=== PATIENT | female | born 1990 | race Caucasian/White ===

== ENCOUNTER 2019-04-10 22:30 | Inpatient (IN) | payer OTHER ==
[2019-04-11 00:07] LABS: BASO % 0.3 % (0-2.0); EOS % 0.3 % (0-4.5); HEMATOCRIT 31.6 % (32.4-45.2); HEMOGLOBIN 10.1 GM/dL (10.7-15.3); LYMPH % 23.7 % (8-40); MCH 31.1 pg (25.7-33.7); MCHC 31.9 g/dl (32.0-36.0); MEAN CELL VOLUME 97.6 fl (80-96); MEAN PLT VOLUME 10.1 fl (7.5-11.1); MONO % 8.5 % (3.8-10.2); NEUT % 67.2 % (42.8-82.8); PLATELET COUNT 244 K/MM3 (134-434); RBC 3.24 M/mm3 (3.60-5.2); RDW 14.6 % (11.6-15.6); WHITE BLOOD COUNT 11.6 K/mm3 (4.0-10.0)
[2019-04-11] MEDS ORDERED: OXYTOCIN 20 UNITS in 0.9% NS 20 UNIT/1,000 ML INFUS.BAG IV ONE (00:18)
[2019-04-11] MEDS ORDERED: FENTANYL/BUPIVACAINE/NS/PF - PCEA - 50 ML DISP.SYRIN EP ONE (00:18)
[2019-04-11 00:19] LABS: INR 0.86 (0.83-1.09); PROTHROMBIN TIME (PATIENT) 10.1 SEC (9.7-13.0)
[2019-04-11] MEDS ORDERED: LIDO 2%/EPI 1:200000 PRESRVFRE (20 ML SDVIAL) ONE (00:21)
--- NOTE | 2019-04-11 00:24 | HP ---
Past Medical History - Admission Chief Complaint: labor pain History Source: Patient Limitations to Obtaining History: No Limitations - Past Medical History CHILD THERAPIST: No: Alzheimer's, CVA, Dementia, Migraine, Multiple Sclerosis, Peripheral Neuropathy, Parkinson's, Seizure, Syncope, TIA, Vertigo, Other Cardiovascular: No: AFIB, Aneurysm, Aortic Insufficiency, Aortic Stenosis, CAD, CHF, Deep Vein Thrombosis, HTN, Hyperlipdemia, [place], Mitral Insufficiency, Mitral Stenosis, Murmur, Pulmonary Hypertension, Other Pulmonary: No: Asthma, Bronchitis, Cancer, COPD, O2 Dependent, Pneumonia, Previously Intubated, Pulmonary Embolus, Pulmonary Fibrosis, Sleep Apnea, Other Gastrointestinal: No: Ascites, Cancer, Constipation, Crohn's Disease, Diverticulitis, Diverticulosis, Esophageal Varices, Gastritis, GERD, GI Bleed, Hemorrhoids, Hiatal Hernia, Inflamatory Bowel Disease, Irritable Bowel Disease, Pancreatitis, Peptic Ulcer Disease, Ulcerative Colitis, Other Hepatobiliary: No: Cirrhosis, Cholelithiasis, Cholecystitis, Choledocholithiasis , Hepatitis A, Hepatitis B, Hepatitis C, Other Renal/: No: Renal Failure, Renal Inusuff, BPH, Cancer, Hematuria, Hemodialysis , Neurogenic Bladder, Renal Calculi, UTI, Other Reproductive: No: Ectopic , Endometriosis, Fibroids, PID, Polycystic Ovary Syndrome, Postmenopausal, Other ...Para: 1 ...Term: 1 ... Weeks Gestation by Dates: 39 ...EDC by Dates: 04/14/19 Heme/Onc: No: Anemia, B12 Deficiency, Bleeding Disorder, Cancer, Current Chemotherapy, Current Radiation Therapy, Hemochromatosis, Hypercoaguable State, Myeloproliferative Synd, Sickle Cell Disease, Sickle Cell Trait, Thrombocytopenia, Other Infectious Disease: No: AIDS, C-Diff, Herpes Zoster, HIV, MRSA, STD's, Tuberculosis, VREF, Other Psych: No: Addictions, Anxiety, Bipolar, Depression, Panic, Psychosis, Schizophrenia, Other Musculoskeletal: No: Bursitis, Chronic low back pain, Hemiparesis, Hemiplegia, Osteoarthritis, Paraplegia, Other Rheumatology: No: Fibromyalgia, Gout, Lupus, Rheumatoid Arthritis, Sarcoidosis, Vasculitis, Other ENT: No: Allergic Rhinitis, Sinusitis, Other Endocrine: No: Massimo's Disease, Elizabeth's Disease, Diabetes Insipidus, Diabetes Mellitus, Hyperparathyroidism, Hyperthyroidism, Hypothyroidism, Osteopenia, SIADH, Other Dermatology: No: Basal Cell, Cellulitis, Eczema, Melanoma, Psoriasis, Squamous Cell, Other - Past Surgical History Past Surgical History: No: None, AAA Repair, AICD, Amputation, Appendectomy, Arthrosocopy, AV Fistula/Graft, Bariatric Surgery, Breast Biopsy, Bypass, CABG, Carotid Endarterectomy, Cataract Removal, Cholecystectomy, Colectomy, Colonoscopy, Colostomy, Craniotomy, , Cystectomy, Hernia Repair, Hysterectomy, Ileal Conduit, Ileosotomy, Joint Replacement, Kidney Transplant, Laminectomy, Liver Transplant, Mastectomy, Nephrectomy, Oopherectomy, Orchiectomy, Permanent Pacemaker, Prostatectomy, Splenectomy, Stent, Thoracotomy , TURP, Tonsillectomy, Tubal Ligation, Upper Endoscopy, Valve Replacement, Vasectomy, Vein Stripping/Ligation Hx Myomectomy: No Hx Transabdominal Cerclage: No - Advance Directives Advance Directives: Yes: Living Will - Smoking History Smoking history: Never smoked Have you smoked in the past 12 months: No - Alcohol/Substance Use Hx Alcohol Use: No History of Substance Use: reports: None - Social History Usual Living Arrangement: Yes: With Significant Other Do you think of yourself as: Straight/Heterosexual ADL: Independent History of Recent Travel: No Home Medications - Allergies Allergies/Adverse Reactions: Allergies Allergy/AdvReac Type Severity Reaction Status Date / Time No Known Allergies Allergy Verified 04/10/19 23:16 - Home Medications Home Medications: Ambulatory Orders NK [No Known Home Medication] 04/10/19 Family Medical History Family History: Denies Review of Systems - Review of Systems Constitutional: reports: No Symptoms Eyes: reports: No Symptoms HENT: reports: No Symptoms Neck: reports: No Symptoms Cardiovascular: reports: No Symptoms Respiratory: reports: No Symptoms Gastrointestinal: reports: No Symptoms Genitourinary: reports: No Symptoms Breasts: reports: No Symptoms Reported Musculoskeletal: reports: No Symptoms Integumentary: reports: No Symptoms Neurological: reports: No Symptoms Endocrine: reports: No Symptoms Hematology/Lymphatic: reports: No Symptoms Psychiatric: reports: No Symptoms Physical Exam - Maternity Constitutional: Yes: Well Nourished, No Distress, Calm Eyes: Yes: WNL, Conjunctiva Clear, EOM Intact HENT: Yes: WNL, Atraumatic, Normocephalic Neck: Yes: WNL, Supple, Trachea Midline Cardiovascular: Yes: WNL, Regular Rate and Rhythm Lungs: Clear to auscultation Breast(s): Yes: WNL - Abdominal Exam/OB Fundal Height: 40 Number of Fetuses: Single Presentation: Vertex Contractions: Yes Regularity: Regular Intensity: Moderate Monitor Mode: External Heart Rate Location: [facility] Category: I Accelerations: Uniform Decelerations: None - Vaginal Exam/OB Vaginal Bleediing: No Speculum Exam: No Dilatation (cm): 5 Effacement (%): 90 Amniotic Membrane Status: Bulging Presentation: Vertex/Position Station: -1 - Physical Exam Musculoskeletal: Yes: WNL Extremities: Yes: WNL Edema: Yes Edema: LUE: 1+, RUE: 1+, LLE: 1+, RLE: 1+ Integumentary: Yes: WNL Deep Tendon Reflex Grade: Normal +2 ...Motor Strength: WNL Psychiatric: Yes: WNL, Alert, Oriented - Labs Lab Results: CBC, BMP 04/10/19 23:52 Assessment/Plan for laboring, asking for epidural, then arom, then pitocin
[2019-04-11 00:29] LABS: BLOOD UREA NITROGEN 8.6 mg/dL (7-18); CALCIUM 8.7 mg/dL (8.5-10.1); CREATININE 0.8 mg/dL (0.55-1.3); POTASSIUM 4.2 mmol/L (3.5-5.1)
[2019-04-11] MEDS ORDERED: OXYTOCIN 30 UNITS in 0.9% NS 30 UNIT/500 ML INFUS.BAG IVPB SCH (00:30)
[2019-04-11] MEDS ORDERED: ELECTROLYTE-148 SOLN 1,000 ML IV SCH (00:30)
[2019-04-11] MEDS ORDERED: LIDOCAINE HCL 1% PRESERVATIVE FREE - 30ML VIAL ONE (01:24)
[2019-04-11] MEDS ORDERED: BISACODYL 10 MG SUPP.RECT RC PRN (01:41)
[2019-04-11] MEDS ORDERED: oxyCODONE HCL 5 MG TABLET PO PRN (01:41)
[2019-04-11] MEDS ORDERED: METHYLERGONOVINE MALEATE 0.2 MG/1 ML AMP IM PRN (01:41)
[2019-04-11] MEDS ORDERED: BENZOCAINE 20% 57 GM BOTTLE TP PRN (01:41)
[2019-04-11] MEDS ORDERED: BENZOCAINE 28 GM HEMORRHOIDAL OINTMENT TP PRN (01:41)
[2019-04-11] MEDS ORDERED: WITCH HAZEL 50% (TUCKS) 40 PAD/JAR PAD TP PRN (01:41)
[2019-04-11] MEDS ORDERED: OXYTOCIN 20 UNITS in 0.9% NS 20 UNIT/1,000 ML INFUS.BAG IV SCH (01:45)
--- NOTE | 2019-04-11 01:45 | PN ---
Progress Note (short form) - Note Progress Note: 0050 pm 9 cm pushing soon, epidural in , but pt still co pain
--- NOTE | 2019-04-11 01:48 | PN ---
Delivery - Delivery Type of Anesthesia: Local, Epidural Episiotomy/Laceration: Right Mediolateral EBL (cc): 250 Delivery, Single - Stages of Labor Date 1st Stage Initiatied: 04/10/19 Time 1st Stage Initiated: 08:00 Date 2nd Stage Initiated: 04/11/19 Date of Delivery: 04/11/19 Date Placenta Delivered: 04/11/19 Placenta: Yes: Spontaneous - Condition of Digital Photographer/Bag Machine Helper Present: No Infant Gender: Female Position: Left, OA Total Hours ROM (Hrs/Mins): 30 min - 1 Minute Total Score: 9 5 Minutes Total Score: 9 - Feeding Plan Benefits of Exclusively reinforced: Yes Remarks - Remarks Remarks: non compliant w pushing, no complications
[2019-04-11 02:36] VITALS: BMI 30.2
[2019-04-11] MEDS: IBUPROFEN 600 MG TABLET (FP) PO PRN ×3 (09:02→19:20)
[2019-04-11] MEDS: ACETAMINOPHEN 325 MG TABLET (FP) PO PRN ×3 (09:03→19:19)
--- NOTE | 2019-04-11 13:02 | PN ---
Post Progress Note Post Day: 0 Type of Delivery: Vital Signs: Vital Signs Temperature 98.7 F 04/11/19 03:40 Pulse Rate 80 04/11/19 03:40 Respiratory Rate 18 04/11/19 03:40 Blood Pressure 106/60 04/11/19 03:40 O2 Sat by Pulse Oximetry (%) 100 04/11/19 03:00 Breast Exam: Yes: Soft Uterus: Yes: Fundus Firm, Fundus below umbilicus Abdomen/GI: Yes: Abdomen soft, Passing flatus, Tolerating PO Lochia: Yes: Serosa Lochia, amount: Small Extremities: Yes: Calves non-tender Perineum: Yes: Episiotomy Activity: Ambulating - Labs Labs: CBC WBC 11.6 K/mm3 (4.0-10.0) H 04/10/19 23:52 RBC 3.24 M/mm3 (3.60-5.2) L 04/10/19 23:52 Hgb 10.1 GM/dL (10.7-15.3) L 04/10/19 23:52 Hct 31.6 % (32.4-45.2) L 04/10/19 23:52 MCV 97.6 fl (80-96) H 04/10/19 23:52 MCH 31.1 pg (25.7-33.7) 04/10/19 23:52 MCHC 31.9 g/dl (32.0-36.0) L 04/10/19 23:52 RDW 14.6 % (11.6-15.6) 04/10/19 23:52 Plt Count 244 K/MM3 (134-434) 04/10/19 23:52 MPV 10.1 fl (7.5-11.1) 04/10/19 23:52 Absolute Neuts (auto) 7.8 K/mm3 (1.5-8.0) 04/10/19 23:52 Neutrophils % 67.2 % (42.8-82.8) 04/10/19 23:52 Lymphocytes % 23.7 % (8-40) 04/10/19 23:52 Monocytes % 8.5 % (3.8-10.2) 04/10/19 23:52 Eosinophils % 0.3 % (0-4.5) 04/10/19 23:52 Basophils % 0.3 % (0-2.0) 04/10/19 23:52 Nucleated RBC % 0 % (0-0) 04/10/19 23:52 Other Findings, Remarks: doing well now, no complications Assessment/Plan dc pt home tomorrow
--- NOTE | 2019-04-11 13:07 | DS ---
Physical Exam-DELINQUENT ACCOUNT CLERK Vital Signs: Vital Signs Temperature 98.7 F 04/11/19 03:40 Pulse Rate 80 04/11/19 03:40 Respiratory Rate 18 04/11/19 03:40 Blood Pressure 106/60 04/11/19 03:40 O2 Sat by Pulse Oximetry (%) 100 04/11/19 03:00 Constitutional: Yes: Well Nourished, No Distress, Calm Eyes: Yes: WNL, Conjunctiva Clear, EOM Intact HENT: Yes: WNL, Atraumatic, Normocephalic Neck: Yes: WNL, Supple, Trachea Midline Cardiovascular: Yes: WNL, Regular Rate and Rhythm Respiratory: Yes: WNL, Regular, CTA Bilaterally Gastrointestinal: Yes: WNL, Normal Bowel Sounds, Soft ...Rectal Exam: Yes: WNL Renal/: Yes: WNL Pelvis: Yes: WNL External Genitalia: Yes: Normal Internal Exam Deferred: No Vaginal Exam: Yes: Normal Cervix: Yes: Normal Uterus: Yes: Normal Adnexa: Normal: Bilateral ....Post : Yes: Uterus firm, Uterus non-tender Breast(s): Yes: WNL Musculoskeletal: Yes: WNL Extremities: Yes: WNL Edema: Yes Edema: LUE: 1+, RUE: 1+, LLE: 1+, RLE: 1+ Integumentary: Yes: WNL Wound/Incision: Yes: Clean/Dry, Well Approximated Neurological: Yes: WNL, Alert, Oriented ...Motor Strength: WNL Psychiatric: Yes: WNL, Alert, Oriented Labs: CBC, BMP 04/10/19 23:52 04/10/19 23:52 Delivery - Delivery Vaginal Delivery: No Problems Type of Anesthesia: Local, Epidural Episiotomy/Laceration: Right Mediolateral EBL (cc): 250 Delivery, Single - Stages of Labor Date 1st Stage Initiatied: 04/10/19 Time 1st Stage Initiated: 08:00 Date 2nd Stage Initiated: 04/11/19 Time 2nd Stage Initiated: 01:00 Date of Delivery: 04/11/19 Time of Delivery: 01:18 Time Placenta Delivered: 01:35 Placenta: Yes: Spontaneous - Condition of Infant Radiation Control Health Physicist/Non Licensed Nuclear Equipment Operator Present: No Infant Gender: Female Weight: 3.657 kg Position: Left, OA Total Hours ROM (Hrs/Mins): 50min - 1 Minute Total Score: 9 5 Minutes Total Score: 9 - [place] Feeding Plan Initial Plan: Exclusive throughout hospitalization Benefits of Exclusively reinforced: Yes Discharge Summary Problems reviewed: Yes Reason For Visit: LABOR none Procedures: Principal: Hospital Course: uneventful Health Concerns: none Plan of Treatment: oob as much as possible Goals: return to work in 6 weeks Condition: Good - Instructions Diet, Activity, Other Instructions: regular, vaginal delivery post instructions Disposition: HOME - Home Medications Comprehensive Discharge Medication List: Ambulatory Orders NK [No Known Home Medication] 04/10/19 none Prescription Drug Monitoring Program (I-STOP) results: I-STOP reviewed and no issues identified (feel better now, not much complaints now)
[2019-04-12] MEDS: IBUPROFEN 600 MG TABLET (FP) PO PRN (04:02)
[2019-04-12] MEDS: ACETAMINOPHEN 325 MG TABLET (FP) PO PRN (04:03)
[2019-04-12 07:45] LABS: BASO % 0.4 % (0-2.0); EOS % 0.7 % (0-4.5); HEMATOCRIT 28.1 % (32.4-45.2); HEMOGLOBIN 8.9 GM/dL (10.7-15.3); LYMPH % 23.8 % (8-40); MCHC 31.5 g/dl (32.0-36.0); MEAN CELL VOLUME 98.3 fl (80-96); MEAN PLT VOLUME 9.6 fl (7.5-11.1); MONO % 5.8 % (3.8-10.2); NEUT % 69.3 % (42.8-82.8); PLATELET COUNT 206 K/MM3 (134-434); RBC 2.86 M/mm3 (3.60-5.2); RDW 14.3 % (11.6-15.6); WHITE BLOOD COUNT 12.7 K/mm3 (4.0-10.0)
[2019-04-12 09:35] VITALS: BP 113/71; PULSE 77; TEMP 97.9
[2019-04-12] MEDS ORDERED: SENNOSIDES/DOCUSATE COMBO (SENNA PLUS) TABLET (UD) PO PRN (22:00)
== END 2019-04-12 16:53 | disposition home or self-care (01) | DRG 560 ==
LOC: JDEL 22:30 → JLDR 23:00 → J3W 04-11 03:38
PROVIDERS: ADMIT Obstetrics & Gynecology; ATTEND Obstetrics & Gynecology
PROC: 10E0XZZ Delivery of Products of Conception, External Approach (ICD-10-PCS; principal; 2019-04-11)
PROC: 0W8NXZZ Division of Female Perineum, External Approach (ICD-10-PCS; 2019-04-11)
PROC: 10907ZC Drainage of Amniotic Fluid, Therapeutic from Products of Conception, Via Natural or Artificial Opening (ICD-10-PCS; 2019-04-11)
DX: O80 Encounter for full-term uncomplicated delivery (principal); Z3A.39 39 weeks gestation of pregnancy; Z37.0 Single live birth
CPT/HCPCS: 36415; 59409; 80048; 85025; 85610; 85730; 86593; 86850; 86900; 86901